=== PATIENT | female | born 1940 | race Caucasian/White ===

== ENCOUNTER 2016-11-27 10:43 | Emergency (ER) | payer MEDICARE ==
[~2016-11-27] VITALS: Ht 157.5 cm; Wt 50.0 kg
[~2016-11-27 10:43] MED LIST: ALEN1TAB48 PO; ASPI81TA11 PO; ATOR20TA15 PO; CALC1TAB19 PO; METO50TA11 PO
[2016-11-27 10:45] VITALS: BP 125/82; PULSE 70; RESP 16; TEMP 97.8; O2SAT 95
[2016-11-27] MEDS ORDERED: PRAD75CA PO (11:11)
--- NOTE | 2016-11-27 11:23 | PD ---
HPI Chief Complaint: Syncope/Near-Syncope Time Seen by Provider: 11:09 Travel History International Travel<30 days: No Contact w/Intl Traveler<30days: No Traveled to known affect area: No History of Present Illness HPI This is a 76-year-old female who presents to the emergency department having had a fall at the [employer] shop. Some bystanders thought she hit her head. She says she feels fine. She thinks it was a trip and fall but she's not sure. She does take Pradaxa. She denies any recent illness and denies any chest pain or trouble breathing. PFSH Past Medical History Hx Anticoagulant Therapy: Yes (pradaxa) Arthritis: No Atrial Fibrillation: Yes Blood Disorders: No Anxiety: No Depression: No Heart Rhythm Problems: No Cancer: Yes High Cholesterol: Yes Chemotherapy: No Chest Pain: No Congestive Heart Failure: No Cerebrovascular Accident: Yes Diminished Hearing: No Endocrine: No Genitourinary: Yes (overactive bladder) Headaches: No Hypertension: Yes Immune Disorder: No Implanted Vascular Access Dvce: Yes Musculoskeletal: Yes Neurologic: Yes (Brain tumor 2012, TIA 2014) Psychiatric: No Reproductive: No Respiratory: No Migraines: No Radiation Therapy: Yes Seizures: No Past Surgical History Body Medical Devices: METAL PLATE IN LEFT ANKLE. / LOOP RECORDER Gynecologic Surgery: Yes (TUBAL LIGATION. ) Other Surgery: Yes (lumpectomy) Social History Alcohol Use: No Tobacco Use: No Substance Use: No Allergies-Medications (Allergen,Severity, Reaction): Coded Allergies: No Known Allergies (Verified , 11/27/16) Reported Meds & Prescriptions Reported Meds & Active Scripts Active Reported Pradaxa (Dabigatran) 75 Mg Cap 75 Mg PO BID Metoprolol Succinate ER 24 HR (Metoprolol Succinate) 50 Mg Tab 50 Mg PO DAILY Calcium Citrate + D3 Maximum Strength (Calcium Citrate-Vitamin D) 315-250 Mg- Unit Tab 1 Tab PO DAILY Atorvastatin (Atorvastatin Calcium) 20 Mg Tab 20 Mg PO HS Aspirin EC (Aspirin) 81 Mg Tabdr 81 Mg PO DAILY Alendronate (Alendronate Sodium) 70 Mg Tab 70 Mg PO Q7D Review of Systems Except as stated in HPI: all other systems reviewed are Neg Physical Exam Narrative GENERAL:Well appearing, no acute distress SKIN: Small abrasion left forehead. HEAD: Atraumatic. Normocephalic. EYES: Pupils equal and round. No injection or drainage. ENT: Moist mucous membranes NECK: Trachea midline. CARDIOVASCULAR: Regular rate and rhythm. No murmur appreciated. RESPIRATORY: Clear to auscultation. Breath sounds equal bilaterally. GASTROINTESTINAL: Abdomen soft, non-tender, nondistended. MUSCULOSKELETAL: No obvious deformities. NEUROLOGICAL: Awake and alert. No obvious cranial nerve deficits. Moving all extremities. PSYCHIATRIC: Appropriate mood and affect; insight and judgment normal. Data Data Last Documented VS Vital Signs Date Time Temp Pulse Resp B/P (MAP) Pulse Ox O2 Delivery O2 Flow Rate FiO2 11/27/16 11:17 100 Room Air 11/27/16 10:45 97.8 70 16 125/82 (96) Orders Orders Electrocardiogram (11/27/16 11:21) Complete Blood Count With Diff (11/27/16 11:21) Comprehensive Metabolic Panel (11/27/16 11:21) Troponin I (11/27/16 11:21) Ct Brain W/O Iv Contrast(Rout) (11/27/16 11:21) Ecg Monitoring (11/27/16 11:21) Iv Access Insert/Monitor (11/27/16 11:21) Oximetry (11/27/16 11:21) Sodium Chloride 0.9% Flush (Ns Flush) (11/27/16 11:30) Labs Laboratory Tests Test 11/27/16 11:35 White Blood Count 8.8 TH/MM3 Red Blood Count 4.40 MIL/MM3 Hemoglobin 13.3 GM/DL Hematocrit 40.0 % Mean Corpuscular Volume 90.9 FL Mean Corpuscular Hemoglobin 30.2 PG Mean Corpuscular Hemoglobin Concent 33.2 % Red Cell Distribution Width 13.5 % Platelet Count 169 TH/MM3 Mean Platelet Volume 9.4 FL Neutrophils (%) (Auto) 83.0 % Lymphocytes (%) (Auto) 8.4 % Monocytes (%) (Auto) 7.3 % Eosinophils (%) (Auto) 0.8 % Basophils (%) (Auto) 0.5 % Neutrophils # (Auto) 7.3 TH/MM3 Lymphocytes # (Auto) 0.7 TH/MM3 Monocytes # (Auto) 0.6 TH/MM3 Eosinophils # (Auto) 0.1 TH/MM3 Basophils # (Auto) 0.0 TH/MM3 CBC Comment DIFF FINAL Differential Comment Blood Urea Nitrogen 16 MG/DL Creatinine 1.05 MG/DL Random Glucose 92 MG/DL Total Protein 7.3 GM/DL Albumin 3.5 GM/DL Calcium Level 9.1 MG/DL Alkaline Phosphatase 77 U/L Aspartate Amino Transf (AST/SGOT) 19 U/L Alanine Aminotransferase (ALT/SGPT) 22 U/L Total Bilirubin 0.9 MG/DL Sodium Level 139 MEQ/L Potassium Level 3.6 MEQ/L Chloride Level 104 MEQ/L Carbon Dioxide Level 29.7 MEQ/L Anion Gap 5 MEQ/L Estimat Glomerular Filtration Rate 51 ML/MIN Troponin I LESS THAN 0.02 NG/ML MDM Medical Decision Making Medical Screen Exam Complete: Yes Emergency Medical Condition: Yes Interpretation(s) afebrile, no tachycardia, normotensive no leukocytosis electrolytes within normal limits troponin normal ekg: nsr, no st changes Differential Diagnosis Arrhythmia, myocardial infarction, intracranial hemorrhage, electrolyte abnormality Narrative Course This is a 76-year-old female who presents to the emergency department with possible closed head injury on Pradaxa. She's not sure if she passed out or fell. She has a long-standing history of syncope and she's been admitted multiple times for it in the past. Labs are all reassuring, EKG is reassuring and CT of the head is unremarkable. I think patient can be discharged home. She is eager to go Diagnosis Primary Impression: Closed head injury Qualified Codes: S09.90XA - Unspecified injury of head, initial encounter Patient Instructions: General Instructions Additional Instructions: If you develop severe worsening headache, persistent vomiting, numbness, weakness, difficulty walking or difficulty talking return to the emergency department immediately. Med/Other Pt SpecificInfo: No Change to Meds Disposition: 01 DISCHARGE HOME Condition: Stable Jennie Mcginnis MD Nov 27, 2016 11:23
[2016-11-27] MEDS ORDERED: SODIUM CHLORIDE 0.9% FLUSH 10 ML FLUSH IVF PRN (11:30)
[2016-11-27 11:59] LABS: AUTOMATED NEUTROPHIL # 7.3 TH/MM3 (1.8-7.7); BASOPHIL % 0.5 % (0.0-2.0); EOSINOPHIL # 0.1 TH/MM3 (0-0.4); EOSINOPHIL % 0.8 % (0.0-4.0); HEMO FLAGS DIFF FINAL; LYMPH % 8.4 % (9.0-44.0); LYMPHOCYTE # 0.7 TH/MM3 (1.0-4.8); MEAN CELL VOLUME 90.9 FL (80.0-100.0); MEAN CORPUSCULAR HEMOGLOBIN 30.2 PG (27.0-34.0); MEAN CORPUSCULAR HGB CONC 33.2 % (32.0-36.0); MONO % 7.3 % (0.0-8.0); PLATELET COUNT 169 TH/MM3 (150-450); RED CELL DISTRIBUTION WIDTH 13.5 % (11.6-17.2); WHITE BLOOD COUNT 8.8 TH/MM3 (4.0-11.0)
--- NOTE | 2016-11-27 12:10 | RADRPT ---
EXAM DATE/TIME: 11/27/2016 11:52 [facility] COMPARISON: CT BRAIN W/O CONTRAST, September 23, 2015, 11:41. INDICATIONS : Syncope, possibly hit head RADIATION DOSE: 30.99 CTDIvol (mGy) MEDICAL HISTORY : Hypertension. brain tumor SURGICAL HISTORY : Craniotomy. Tubal ligation. ENCOUNTER: Initial ACUITY: 1 day PAIN SCALE: 0/10 LOCATION: cranial TECHNIQUE: Multiple contiguous axial images were obtained of the head. Using automated exposure control and adj ustment of the mA and/or kV according to patient size, radiation dose was kept as low as reasonably a chievable to obtain optimal diagnostic quality images. DICOM format image data is available electro nically for review and comparison. FINDINGS: There is no evidence for intracranial hemorrhage, mass effect, mass lesions, or edema. The visualize d bony structures appear intact. Slight degree of brain atrophy is seen. Slight periventricular whit e matter changes are seen nonspecific mostly consistent with chronic small vessel ischemic changes. There are no signs of acute infarction for technique. There is evidence for prior craniotomy with sli ght encephalomalacia in the left high convexity posterior parietal lobe. CONCLUSION: Chronic changes, atrophic and small vessel ischemic changes without any evidence for acut e hemorrhage or mass effect. Yusuf Smith MD on November 27, 2016 at 12:06 Board Certified Radiologist. This report was verified electronically.
[2016-11-27 12:11] LABS: ALT (GPT) 22 U/L (10-53); ANION GAP 5 MEQ/L (5-15); AST (GOT) 19 U/L (15-37); BICARBONATE 29.7 MEQ/L (21.0-32.0); BLOOD UREA NITROGEN 16 MG/DL (7-18); CHLORIDE 104 MEQ/L (98-107); GLOMERULAR FILTRATION RATE 51 ML/MIN (>89); POTASSIUM 3.6 MEQ/L (3.5-5.1); SODIUM (NA) 139 MEQ/L (136-145)
[2016-11-27 12:14] LABS: ALKALINE PHOSPHATASE 77 U/L (45-117); TOTAL BILIRUBIN ADULT 0.9 MG/DL (0.2-1.0)
[2016-11-27 12:34] VITALS: BP 127/73
--- NOTE | 2016-11-28 11:57 | EKG ---
Date Performed: 11/27/2016 Time Performed: 11:43:51 PTAGE: 76 years EKG: Sinus rhythm WITH SINUS ARRHYTHMIA BORDERLINE ECG PREVIOUS TRACING : 09/23/2015 11.14 No significant change from previous tracing noted. DOCTOR: Reece Salazar Interpretating Date/Time 11/28/2016 11:55:18
== END 2016-11-27 12:39 | disposition home or self-care (01) ==
LOC: NEPD 10:43
DX: S09.90XA Unspecified injury of head, initial encounter (principal); S00.81XA Abrasion of other part of head, initial encounter; I10 Essential (primary) hypertension; E78.00 Pure hypercholesterolemia, unspecified; R94.31 Abnormal electrocardiogram [ECG] [EKG]; W01.0XXA Fall on same level from slipping, tripping and stumbling without subsequent striking against object, initial encounter; Y92.513 Shop (commercial) as the place of occurrence of the external cause; Z79.01 Long term (current) use of anticoagulants; Z86.79 Personal history of other diseases of the circulatory system; Z87.448 Personal history of other diseases of urinary system; Z87.39 Personal history of other diseases of the musculoskeletal system and connective tissue; Z86.69 Personal history of other diseases of the nervous system and sense organs
CPT/HCPCS: 70450; 80053; 84484; 85025; 93005